=== PATIENT | female | born 1935 | race Two or more races ===

== ENCOUNTER → 2017-07-01 | Emergency (ER) | payer OTHER ==
[~2017-07-01] VITALS: Ht 152.4 cm; Wt 61.7 kg
[~2017-07-01] MED LIST: COZAAR25 MG; PREVACID30 MG; REGLAN5 MG/5 ML
== END | disposition home or self-care (01) ==
LOC: ER 10:00
DX: B34.9 Viral infection, unspecified (principal); J11.1 Influenza due to unidentified influenza virus with other respiratory manifestations

== ENCOUNTER 2019-09-10 11:30 | Inpatient (IN) | payer OTHER ==
[~2019-09-10] VITALS: Ht 147.3 cm; Wt 65.3 kg
[~2019-09-10 11:30] MED LIST changes: -COZAAR25 MG; +COZAAR25 MG PO; +PREVACID30 MG PO
== END 2019-09-14 17:03 | disposition home or self-care (01) | DRG 331 ==
LOC: ADM 11:30 → SURG 09-12 05:15 → O/R 09-12 05:15 → EDSTATUS 09-12 11:30 → ADM 09-12 11:30 → SURH 09-12 11:30 → SURG 09-12 13:03 → SURH 09-12 18:00 → SURG 09-14 17:03
PROVIDERS: ADMIT Colon & Rectal Surgery
PROC: 0DJD8ZZ Inspection of Lower Intestinal Tract, Via Natural or Artificial Opening Endoscopic (ICD-10-PCS; 2019-09-12)
PROC: 3E0F7GC Introduction of Other Therapeutic Substance into Respiratory Tract, Via Natural or Artificial Opening (ICD-10-PCS; 2019-09-12)
PROC: 0DTN4ZZ Resection of Sigmoid Colon, Percutaneous Endoscopic Approach (ICD-10-PCS; principal; 2019-09-12 18:00)
DX: K57.32 Diverticulitis of large intestine without perforation or abscess without bleeding (principal); J32.8 Other chronic sinusitis; I11.0 Hypertensive heart disease with heart failure; J45.40 Moderate persistent asthma, uncomplicated

== ENCOUNTER 2020-11-07 08:45 | Day surgery (SDC) | payer OTHER | END 2020-11-07 15:45 | disposition home or self-care (01) | LOC: AMB-ENDOS 08:45 | PROVIDERS: ATTEND Colon & Rectal Surgery | DX: D12.3 Benign neoplasm of transverse colon (principal); K64.2 Third degree hemorrhoids; Z20.822 Contact with and (suspected) exposure to COVID-19 ==

== ENCOUNTER 2021-04-06 11:02 | Emergency (ER) | payer OTHER ==
[~2021-04-06] VITALS: Ht 152.4 cm; Wt 63.5 kg
[2021-04-06] MEDS ORDERED: AVAPRO75 MG PO (11:57)
[2021-04-06] MEDS ORDERED: ZETIA10 MG PO (11:58)
[2021-04-06] MEDS ORDERED: PROBIOTIC1 EAC2 PO (11:58)
[2021-04-06] MEDS ORDERED: FLAGYL500MG PO (20:02)
[2021-04-06] MEDS ORDERED: DICY20TA PO (20:02)
[2021-04-06] MEDS ORDERED: PEPCID AC20 MG PO (20:02)
== END 2021-04-06 20:45 | disposition home or self-care (01) ==
LOC: ER 11:02
DX: K52.89 Other specified noninfective gastroenteritis and colitis (principal); R10.32 Left lower quadrant pain; Z20.822 Contact with and (suspected) exposure to COVID-19

== ENCOUNTER 2023-05-28 07:37 | Emergency (ER) | payer OTHER ==
[~2023-05-28] VITALS: Ht 152.4 cm; Wt 59.9 kg
[~2023-05-28 07:37] MED LIST changes: +AVAPRO75 MG PO; +DICY20TA PO; +FLAGYL500MG PO; +PEPCID AC20 MG PO; +PROBIOTIC1 EAC2 PO; +ZETIA10 MG PO
== END 2023-05-28 10:14 | disposition home or self-care (01) ==
LOC: ER 07:38
DX: M54.16 Radiculopathy, lumbar region (principal); Z88.6 Allergy status to analgesic agent; Z91.011 Allergy to milk products; Z91.018 Allergy to other foods; Z88.2 Allergy status to sulfonamides
CPT/HCPCS: 96372; 99284; J1100; J2360